=== PATIENT | male | born 1950 | race Caucasian/White ===

== ENCOUNTER 2016-07-11 16:37 | Emergency (ER) | payer MEDICARE, OTHER ==
[2016-07-11] MEDS ORDERED: SODIUM CHLORIDE 0.9% 1,000 ML ONE (21:08)
[2016-07-11] MEDS ORDERED: DEXAMETHASONE 4 MG/ML VIAL ONE (23:27)
== END 2016-07-12 01:20 | disposition other institution (70) ==
LOC: ER 16:37
CPT/HCPCS: 70450; 71020; 96361; 96374